=== PATIENT | female | born 1990 | race American Indian/Alaskan Native ===

== ENCOUNTER 2016-06-03 16:16 | Emergency (ER) | payer OTHER ==
[2016-06-03] MEDS ORDERED: NORCO 5/325 PO ONE ×2 (17:41→19:34)
[2016-06-03] MEDS ORDERED: FLEXERIL PO ONE (17:41)
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
[2016-06-03] MEDS ORDERED: TORADOL IM ONE (19:34)
[2016-06-03 19:56] VITALS: BP 123/71
== END 2016-06-03 19:56 | disposition home or self-care (01) ==
LOC: ED 16:16
DX: S39.012A Strain of muscle, fascia and tendon of lower back, initial encounter (principal); S29.012A Strain of muscle and tendon of back wall of thorax, initial encounter; V89.2XXA Person injured in unspecified motor-vehicle accident, traffic, initial encounter; Y92.488 Other paved roadways as the place of occurrence of the external cause; Y93.89 Activity, other specified; Y99.8 Other external cause status
CPT/HCPCS: 72100; 96372; 99283; J1885